=== PATIENT | male | born 1970 | race Caucasian/White ===

== ENCOUNTER 2016-07-10 19:43 | Inpatient (IN) | payer OTHER ==
[~2016-07-10] VITALS: Ht 177.8 cm; Wt 93.7 kg
--- NOTE | ~2016-07-10 | ST ---
[place], [place] EXERCISE STRESS TEST REPORT NAME: [facility]IR WAKEFIELD [id number] UNIT #: [id number] ROOM: 419 DOCTOR: DANIEL JOHN,CLAUDETTE BIRTHDATE: [birth year] DOS: 07/11/2016 REASON FOR TEST: Evaluation of atypical chest pain. PHYSICAL EXAMINATION NECK: Supple. LUNGS: Clear anteriorly. HEART: Regular rhythm. PROTOCOL: Ganga protocol. DESCRIPTION: Total stress time 7 minutes. Maximum heart rate of 155, which is 88% of target heart rate. Peak blood pressure 180/70, adequate response. Total mets 8.3 mets. REASON FOR TERMINATION: Target heart rate achieved and shortness of breath. SYMPTOMS: The patient is chest pain free, developed a mild to moderate shortness of breath and stage 2 of the Ganga protocol test. EKG: Resting EKG, sinus rhythm. Stress EKG showed 1-[address] depression in the inferior well as lead V4-V6 that was resolved by pain medicine until recovery phase. Edmond treadmill score of +7. CONCLUSION: Clinically, the patient is chest pain free, developed shortness of breath. EKG, ischemic with to 1-[address] depression in inferior leads as well as lead V4-V6. POST-STRESS COMPLICATIONS: None. CLAUDETTE SANCHEZ MD CM:STRESS:EXERCISE STRESS TEST REPORT [id number] CLAUDETTE SANCHEZ MD
--- NOTE | ~2016-07-10 | CON ---
[place], [place] REPORT OF CONSULTATION NAME: [facility]KEFIELD [id number] UNIT #: [id number] ROOM: 419 DOCTOR: DANIEL JOHNMARYStacy BIRTHDATE: [birth year] DOS: 07/11/2016 REASON FOR CONSULTATION: Chest pain. CONSULTING PHYSICIAN: Dr. Benz. CLINICAL HISTORY: The patient is a 46-year-old gentleman with history of aortic valve replacement, who came to the Emergency Room with right-sided neck pain. Apparently, the patient was watching television at home, ended up with sudden onset of burning pain on the right side of the neck as well as back of his neck. This pain radiated down his right shoulder. Pain lasted for about a few minutes. He had a similar episode of second chest pain at the time of dinner. He denies any recent injury to the neck, had no unusual physical activity except that he did carry a 40-inch TV yesterday. He also has some shortness of breath and lightheadedness with that pain and he came to the Emergency Room and was admitted to the hospital, and Cardiology was consulted for further recommendation. He had aortic valve replacement in 2013 at [facility] for a bicuspid aortic valve. He denies exertional chest pains or palpitation. No dizziness, no edema, no orthopnea, no PND, no fever, no chills, no nausea, vomiting or diarrhea. No headaches. No visual symptoms. No tingling, numbness or weakness. No hematuria or dysuria. No joint symptoms except some occasional neck pain and left shoulder pain. REVIEW OF SYSTEMS: Review of the 8 systems negative except as mentioned above, especially denies any exertional chest pains. PAST MEDICAL HISTORY: 1. History of bicuspid aortic valve, status post bioprosthetic aortic valve replacement in 2013, details unknown. 2. Dyslipidemia. 3. Acid reflux. 4. Neck pain. 5. Vitamin D deficiency. PAST SURGICAL HISTORY: History of aortic valve replacement in 2013, bioprosthetic valve. SOCIAL HISTORY: The patient quit smoking about 6 years ago and does not use illicit drugs, does not use alcohol. FAMILY HISTORY: Mother has hypertension and stroke. Father has history of CAD and stent in his 50s. ALLERGIES: THE PATIENT IS ALLERGIC TO PERCOCET. HOME MEDICATIONS: Reviewed. PHYSICAL EXAMINATION: VITAL SIGNS: Blood pressure 120/73, pulse 76, respiration is 18, weight 93.6 kilos with a BMI of 29.6. [place], [place] REPORT OF CONSULTATION NAME: VLADIMIR WAKEFIELD UNIT #: [id number] ROOM: [facility] DOCTOR: DANIEL JOHN,CLAUDETTE BIRTHDATE: [birth year] GENERAL: Alert, comfortable, in no acute distress. HEENT: Pupils are round and equal. No jaundice. Tongue was moist and pharynx was clear. NECK: Supple. No distended neck veins, no carotid bruit. CHEST: Symmetrical, nontender. LUNGS: Clear to auscultation bilaterally. HEART: Regular rhythm, no S3, grade 1/6 systolic murmur at the left sternal border. ABDOMEN: Bowel sounds normal, nontender. EXTREMITIES: Showed no edema. Distal pulses are palpable. SKIN: Warm and dry. No cyanosis, no clubbing. NEUROLOGIC: The patient is alert, oriented. No focal neurologic deficit. RECTAL: Deferred. GENITOURINARY: Deferred. MUSCULOSKELETAL: No joint tenderness or swelling. REVIEW OF DIAGNOSTIC TESTS: EKG shows sinus rhythm. No acute ischemic changes. CBC, chemistry reviewed. Cardiac enzymes were negative x . TSH 0.75. IMPRESSION: 1. Right-sided neck pain, atypical chest pain. 2. History of a bioprosthetic aortic valve replacement in 2013, details unknown. 3. Dyslipidemia. 4. Peripheral neuropathy. 5. Overweight. 6. Acid reflux. RECOMMENDATIONS: 1. He denies any chest pain or shortness of breath. As per EKG, cardiac enzymes are unremarkable. 2. Scheduled for exercise nuclear stress test to rule out ischemia. 3. Risk factor modification was discussed. 4. Try to obtain his records from . CLAUDETTE SANCHEZ MD CM:CONSTR:REPORT OF CONSULTATION 2311 07/12/16 0914 interface
--- NOTE | ~2016-07-10 | PR ---
[place], [place] PROGRESS NOTE NAME: VLADIMIR WAKEFIELD [facility] #: [id number] UNIT #: [id number] ROOM: 419 DOCTOR: CHRIS FOUNTAIN MD BIRTHDATE: [birth year] DOS: 07/12/2016 SUBJECTIVE: The patient was seen at his bedside today 07/12/2016 for followup of his neck pain and abnormal stress test. He is a 46-year-old man who has a history of a bicuspid aortic valve. He was previously seen by the [facility] and is typically followed for his cardiac issues by the [facility] system. He did undergo aortic valve replacement in 04/2012 with a 23-mm stentless porcine bioprosthesis and the ascending aorta was replaced with a 30-mm ring Dacron graft. Preoperative catheterization prior to the aortic valve surgery was reportedly normal without any coronary disease. He presented to the hospital on this occasion with neck pain and diaphoresis. The pain resolved spontaneously, but then recurred. He was brought to the hospital where his EKG showed no acute changes and cardiac biomarkers were negative; however, an exercise myocardial perfusion study was marked by EKG changes with exercise along with chest discomfort. The perfusion images showed a moderate sized area of inferior and moderate sized area of lateral wall reversible ischemia. Ejection fraction was 65%. The patient also had an echocardiogram on 07/11/2016, which showed normal left ventricular size, wall motion thickness and systolic function with an ejection fraction of 60%. Diastolic function was normal. Right ventricular size and function were normal. The aortic valve was a prosthetic which was not well visualized, but appeared to have normal function. Mean gradient across the valve was 10 mmHg. There was trace to mild tricuspid insufficiency with normal right ventricular systolic pressures. The patient feels well today; however, because of his episodes of chest pain, he is anxious to have further testing done. PHYSICAL EXAMINATION: VITAL SIGNS: On exam today, his pulse is 60 and regular, blood pressure is 143/85. He is afebrile. HEENT: Normocephalic, atraumatic. Extraocular muscles are intact. Sclerae are clear. Pupils are equal, round and reactive to light. Oral mucosa is moist. Tongue is midline. NECK: Supple. He has no jugular distention. Carotids are full. I heard no bruits. He had no neck or supraclavicular masses and no thyromegaly. LUNGS: Respirations are unlabored. His chest is clear to auscultation and percussion. He has no presacral edema or chest wall tenderness. HEART: Has a regular rhythm with a grade 3/6 late peaking systolic ejection murmur along the left sternal border. No diastolic murmurs are present. The PMI was not displaced. He had no precordial heave, lift or thrill. ABDOMEN: Soft and normally active without masses, organomegaly or bruits. EXTREMITIES: Showed no edema. Peripheral pulses were easily palpated bilaterally. IMPRESSIONS: 1. Unstable angina. 2. Abnormal stress test demonstrating inferior lateral ischemia. [place], [place] PROGRESS NOTE NAME: [facility] WAKEFIELD [facility]: [id number] UNIT #: [id number] ROOM: 419 DOCTOR: CHRIS FOUNTAIN MD BIRTHDATE: [birth year] 3. Status post aortic valve and aortic root replacement for bicuspid aortic valve and ascending aortic aneurysm. PLAN: We are planning on transferring the patient for cardiac catheterization. This probably will not be completed until 07/13/2016 because of scheduling issues at [facility]. The patient understands his risk of heart attack, stroke, , bleeding, bruising, dye reaction, irregular heartbeats, infections, etc., with catheterization and requests that we proceed. [facility] and I thank the hospitalist group for asking our advice regarding the patient's management. CHRIS FOUNTAIN MD CM:PNTRANS 0834 CHRIS FOUNTAIN MD 07/12/1611 interface
[~2016-07-10 19:43] MED LIST: AMOXICILLIN500 MG PO; ASPIRIN81 M1 PO; ATIVAN1 MG PO; AVAPRO150 MG PO; CHEWABLE ASPIRI81 MG PO; D-31000 IU PO; DILTIAZEM60 MG PO; ECOTRIN81 MG PO; GABAPENTIN100 M1 PO; HYDROCODONE BIT1 T11 PO; KEFLEX500 MG PO; LEVAQUIN750 MG PO; LEVOFLOXACIN500 MG PO; LISINOPRIL2.5 MG PO; LOPRESSOR50 MG PO; MECLIZINE HYD12.5 MG PO; NASAREL0.025 MG/1 NS; NO DAILY MEDS; PAROXETINE20 MG PO; PERCOCET 325 MG1 TA7 PO; PREDNISONE20 MG PO; PRILOSEC20 MG PO; ROXICODONE5 MG PO; SERTRALINE HCL100 MG PO; TRAZADONE HYDR100 MG PO; VICO10300 PO; VISTARIL25 MG PO; VITAMIN C1 TAB PO; VITAMIN D31000 I1 PO; WELLBUTRIN SR150 MG PO; ZESTRIL2.5 MG PO; ZOCOR20 MG PO; [UNRECOGNIZED DRUG - OTHER] OT
[2016-07-10 20:05] VITALS: BP 154/96
[2016-07-10] MEDS ORDERED: PANTOPRAZOLE SO20 MG PO (20:07)
[2016-07-10] MEDS ORDERED: LYRICA100 M1 PO (20:07)
[2016-07-10 20:55] LABS: BASO # 0.1 10*3/uL (0.0-0.1); BASO % 0.9 % (0.0-1.0); EOS # 0.3 10*3/uL (0.0-0.4); EOS % 4.2 % (1.0-4.0); HEMATOCRIT 43.9 % (42.0-52.0); HEMOGLOBIN 15.2 g/dl (14.0-18.0); LYMPH # 1.9 10*3/uL (1.3-4.4); LYMPH % 23.7 % (27.0-41.0); MEAN CELL VOLUME 89.2 fl (80.0-94.0); MEAN CORPUSCULAR HGB 30.9 pg (27.0-31.0); MEAN CORPUSCULAR HGB CONC 34.6 g/dl (33.0-37.0); MEAN PLATELET VOLUME 11.2 fl (9.6-12.3); MONO # 0.7 10*3/uL (0.1-1.0); MONO % 8.8 % (3.0-9.0); NEUT # 4.9 10*3/uL (2.3-7.9); NEUT % 62.3 % (47.0-73.0); PLATELET COUNT AUTOMATED 168 10*3/uL (130-400); RED BLOOD COUNT 4.92 10*6/uL (4.50-5.90); RED CELL DISTRI WIDTH 12.9 % (0-14.5); WHITE BLOOD COUNT 7.8 10*3/uL (4.8-10.8)
[2016-07-10 21:12] LABS: ALBUMIN 3.9 gm/dl (3.1-4.5); ALKALINE PHOSPHATASE 119 U/L (45-117); BILIRUBIN, DIRECT 0.1 mg/dL (0.0-0.2); BILIRUBIN, TOTAL 0.5 mg/dl (0.2-1.0); BUN 14 mg/dl (7-24); CARBON DIOXIDE 29 mmol/L (21-32); CHLORIDE 107 mmol/L (98-107); EST GLOM FILT AFRICAN AMERICAN > 60 ml/min; GLUCOSE 86 mg/dL (65-99); MAGNESIUM 2.2 mg/dL (1.5-2.1); POTASSIUM 4.3 mmol/L (3.5-5.1); SGOT/AST 29 IU/L (3-35); SGPT/ALT 24 U/L (12-78); SODIUM 141 mmol/L (136-145); TOTAL PROTEIN 7.4 gm/dL (6.4-8.2)
[2016-07-10 21:14] LABS: TROPONIN I < 0.015 ng/ml (<0.045)
[2016-07-10 21:53] VITALS: BP 148/76
[2016-07-10 22:55] VITALS: BP 129/80
[2016-07-11] VITALS: BP 129/80
[2016-07-11 00:30] LABS: CKMB 4.7 ng/ml (0.5-3.6); CPK 449 U/L (39-308); TROPONIN I < 0.015 ng/ml (<0.045)
[2016-07-11 06:22] LABS: BASO % 0.2 % (0.0-1.0); EOS % 0.1 % (1.0-4.0); HEMATOCRIT 46.8 % (42.0-52.0); HEMOGLOBIN 16.1 g/dl (14.0-18.0); LYMPH # 0.7 10*3/uL (1.3-4.4); LYMPH % 9.2 % (27.0-41.0); MEAN CORPUSCULAR HGB 30.6 pg (27.0-31.0); MEAN CORPUSCULAR HGB CONC 34.4 g/dl (33.0-37.0); MEAN PLATELET VOLUME 11.3 fl (9.6-12.3); MONO # 0.1 10*3/uL (0.1-1.0); MONO % 0.6 % (3.0-9.0); NEUT # 7.2 10*3/uL (2.3-7.9); NEUT % 89.5 % (47.0-73.0); PLATELET COUNT AUTOMATED 170 10*3/uL (130-400); RED BLOOD COUNT 5.26 10*6/uL (4.50-5.90); RED CELL DISTRI WIDTH 12.6 % (0-14.5)
[2016-07-11 06:34] LABS: CKMB 4.1 ng/ml (0.5-3.6); CPK 353 U/L (39-308); HEMOGLOBIN A1c 5.6 % (4.8-5.6)
[2016-07-11 06:39] LABS: TROPONIN I < 0.015 ng/ml (<0.045)
[2016-07-11 06:54] LABS: BUN 17 mg/dl (7-24); CARBON DIOXIDE 24 mmol/L (21-32); CHLORIDE 107 mmol/L (98-107); CHOLESTEROL 116 mg/dL (<200); EST GLOM FILT AFRICAN AMERICAN > 60 ml/min; GLUCOSE 140 mg/dL (65-99); POTASSIUM 4.1 mmol/L (3.5-5.1); SODIUM 138 mmol/L (136-145); TRIGLYCERIDES 57 mg/dl (<150); VLDL CHOLESTEROL 11 mg/dL (6-40)
[2016-07-11 06:59] LABS: PROTHROMBIN TIME 10.3 SECONDS (9.0-12.4)
[2016-07-11 07:02] LABS: FREE T4 0.86 ng/dl (0.76-1.46); HDL CHOLESTEROL 59 mg/dl (40-60); LDL CHOLESTEROL 46 mg/dL (9-159); THYROID STIM HORMONE (HS) 0.765 uIU/ml (0.358-4.75)
[2016-07-11 07:33] LABS: FOLIC ACID 7.51 ng/mL (>5.38)
[2016-07-11 08:00] VITALS: BP 120/74
[2016-07-11 12:00] VITALS: BP 120/73
[2016-07-11 12:40] LABS: CKMB 4.2 ng/ml (0.5-3.6); CPK 302 U/L (39-308)
[2016-07-11 12:41] LABS: TROPONIN I < 0.015 ng/ml (<0.045)
[2016-07-11 16:00] VITALS: BP 109/69
[2016-07-11 16:46] LABS: PROTHROMBIN TIME 10.7 SECONDS (9.0-12.4)
[2016-07-11 20:00] VITALS: BP 120/68
[2016-07-12] VITALS: BP 149/87
[2016-07-12 06:05] LABS: BASO % 0.2 % (0.0-1.0); EOS % 0.2 % (1.0-4.0); HEMOGLOBIN 15.5 g/dl (14.0-18.0); IG # 0.1 10*3/uL (0.0-0.1); LYMPH # 1.9 10*3/uL (1.3-4.4); LYMPH % 10.1 % (27.0-41.0); MEAN CELL VOLUME 88.9 fl (80.0-94.0); MEAN CORPUSCULAR HGB 31.3 pg (27.0-31.0); MEAN CORPUSCULAR HGB CONC 35.2 g/dl (33.0-37.0); MEAN PLATELET VOLUME 11.4 fl (9.6-12.3); MONO % 5.2 % (3.0-9.0); NEUT # 15.9 10*3/uL (2.3-7.9); NEUT % 83.8 % (47.0-73.0); PLATELET COUNT AUTOMATED 161 10*3/uL (130-400); RED BLOOD COUNT 4.95 10*6/uL (4.50-5.90); RED CELL DISTRI WIDTH 13.1 % (0-14.5)
[2016-07-12 06:30] LABS: BUN 14 mg/dl (7-24); CARBON DIOXIDE 25 mmol/L (21-32); CHLORIDE 108 mmol/L (98-107); EST GLOM FILT AFRICAN AMERICAN > 60 ml/min; GLUCOSE 110 mg/dL (65-99); POTASSIUM 4.3 mmol/L (3.5-5.1); SODIUM 141 mmol/L (136-145)
[2016-07-12 08:00] VITALS: BP 143/85
[2016-07-12 12:00] VITALS: BP 141/78
[2016-07-12 16:00] VITALS: BP 149/82
[2016-07-12 20:00] VITALS: BP 138/80
[2016-07-13] VITALS: BP 150/89
[2016-07-13 06:00] LABS: BASO # 0.1 10*3/uL (0.0-0.1); EOS # 0.2 10*3/uL (0.0-0.4); EOS % 1.8 % (1.0-4.0); HEMATOCRIT 49.7 % (42.0-52.0); HEMOGLOBIN 16.9 g/dl (14.0-18.0); IG # 0.1 10*3/uL (0.0-0.1); LYMPH # 2.9 10*3/uL (1.3-4.4); LYMPH % 27.6 % (27.0-41.0); MEAN CELL VOLUME 88.6 fl (80.0-94.0); MEAN CORPUSCULAR HGB 30.1 pg (27.0-31.0); MEAN PLATELET VOLUME 11.9 fl (9.6-12.3); MONO # 0.7 10*3/uL (0.1-1.0); NEUT # 6.4 10*3/uL (2.3-7.9); NEUT % 61.9 % (47.0-73.0); PLATELET COUNT AUTOMATED 166 10*3/uL (130-400); RED BLOOD COUNT 5.61 10*6/uL (4.50-5.90); RED CELL DISTRI WIDTH 13.2 % (0-14.5); WHITE BLOOD COUNT 10.4 10*3/uL (4.8-10.8)
== END 2016-07-13 06:29 | disposition other institution (70) | DRG 280 ==
LOC: ED 19:43 → EDHOLD 22:17 → 4E 22:17
PROVIDERS: Emergency Medicine; Internal Medicine; Nurse Practitioner Adult Health
PROC: 4A02XM4 Measurement of Cardiac Total Activity, External Approach (ICD-10-PCS; principal; 2016-07-11)
DX: I21.4 Non-ST elevation (NSTEMI) myocardial infarction (principal); N17.0 Acute kidney failure with tubular necrosis; M54.2 Cervicalgia; E78.5 Hyperlipidemia, unspecified; G62.9 Polyneuropathy, unspecified; F32.9 Major depressive disorder, single episode, unspecified; E66.3 Overweight; K21.9 Gastro-esophageal reflux disease without esophagitis; I71.2 Thoracic aortic aneurysm, without rupture; E55.9 Vitamin D deficiency, unspecified; Z95.4 Presence of other heart-valve replacement; Z82.49 Family history of ischemic heart disease and other diseases of the circulatory system; Z87.891 Personal history of nicotine dependence; Z88.6 Allergy status to analgesic agent; Z68.29 Body mass index [BMI] 29.0-29.9, adult

== ENCOUNTER 2017-02-24 14:33 | Emergency (ER) | payer OTHER ==
[~2017-02-24] VITALS: Ht 177.8 cm; Wt 94.3 kg
[~2017-02-24 14:33] MED LIST changes: +LYRICA100 M1 PO; +PANTOPRAZOLE SO20 MG PO
[2017-02-24 16:23] LABS: BASO # 0.1 10*3/uL (0.0-0.1); BASO % 0.8 % (0.0-1.0); EOS # 0.2 10*3/uL (0.0-0.4); EOS % 2.4 % (1.0-4.0); HEMOGLOBIN 16.2 g/dl (14.0-18.0); LYMPH # 2.2 10*3/uL (1.3-4.4); LYMPH % 24.1 % (27.0-41.0); MEAN CELL VOLUME 88.3 fl (80.0-94.0); MEAN CORPUSCULAR HGB 30.5 pg (27.0-31.0); MEAN CORPUSCULAR HGB CONC 34.5 g/dl (33.0-37.0); MEAN PLATELET VOLUME 11.4 fl (9.6-12.3); MONO # 0.6 10*3/uL (0.1-1.0); MONO % 6.6 % (3.0-9.0); NEUT % 65.8 % (47.0-73.0); PLATELET COUNT AUTOMATED 167 10*3/uL (130-400); RED BLOOD COUNT 5.32 10*6/uL (4.50-5.90); RED CELL DISTRI WIDTH 12.6 % (0-14.5); WHITE BLOOD COUNT 9.1 10*3/uL (4.8-10.8)
[2017-02-24 16:41] LABS: ALBUMIN 4.1 gm/dl (3.1-4.5); ALKALINE PHOSPHATASE 136 U/L (45-117); BUN 14 mg/dl (7-24); CHLORIDE 102 mmol/L (98-107); CREATININE 1.03 mg/dL (0.70-1.30); POTASSIUM 4.1 mmol/L (3.5-5.1); SGOT/AST 21 IU/L (3-35); SGPT/ALT 20 U/L (12-78); SODIUM 137 mmol/L (136-145); TOTAL PROTEIN 7.7 gm/dL (6.4-8.2)
== END 2017-02-24 18:59 | disposition home or self-care (01) ==
LOC: ED 14:33
PROVIDERS: Internal Medicine
DX: R41.82 Altered mental status, unspecified (principal); F32.9 Major depressive disorder, single episode, unspecified; K21.9 Gastro-esophageal reflux disease without esophagitis; Z79.82 Long term (current) use of aspirin; Z88.5 Allergy status to narcotic agent

== ENCOUNTER 2018-01-14 14:27 | Emergency (ER) | payer OTHER ==
[~2018-01-14] VITALS: Ht 177.8 cm; Wt 87.5 kg
[2018-01-14 17:45] LABS: BASO # 0.1 10*3/uL (0.0-0.1); BASO % 0.8 % (0.0-1.0); EOS # 0.2 10*3/uL (0.0-0.4); EOS % 1.8 % (1.0-4.0); HEMATOCRIT 46.6 % (42.0-52.0); HEMOGLOBIN 15.4 g/dl (14.0-18.0); LYMPH # 1.6 10*3/uL (1.3-4.4); LYMPH % 15.7 % (27.0-41.0); MEAN CORPUSCULAR HGB 30.7 pg (27.0-31.0); MEAN PLATELET VOLUME 11.2 fl (9.6-12.3); MONO # 0.5 10*3/uL (0.1-1.0); MONO % 5.1 % (3.0-9.0); NEUT # 7.6 10*3/uL (2.3-7.9); NEUT % 76.3 % (47.0-73.0); PLATELET COUNT AUTOMATED 159 10*3/uL (130-400); RED BLOOD COUNT 5.01 10*6/uL (4.50-5.90); RED CELL DISTRI WIDTH 12.9 % (0-14.5)
[2018-01-14 18:00] LABS: ALKALINE PHOSPHATASE 126 U/L (45-117); BUN 19 mg/dl (7-24); CHLORIDE 106 mmol/L (98-107); CREATININE 0.93 mg/dL (0.70-1.30); POTASSIUM 4.3 mmol/L (3.5-5.1); SGOT/AST 25 IU/L (3-35); SGPT/ALT 23 U/L (12-78); SODIUM 139 mmol/L (136-145); TOTAL PROTEIN 7.4 gm/dL (6.4-8.2)
[2018-01-14] MEDS ORDERED: CEPHALEXIN500 M1 PO (18:18)
[2018-01-16] MEDS ORDERED: CYMBALTA60 MG PO (12:25)
[2018-01-16] MEDS ORDERED: PROVIGIL200 MG PO (12:26)
[2018-01-16] MEDS ORDERED: ZANAFLEX CAPSULE4 MG PO (12:26)
[2018-01-18] MEDS ORDERED: NORCO 5-325 TA1 EACH PO (09:33)
[2018-01-18] MEDS ORDERED: ZOFRAN4 MG PO (09:34)
== END 2018-01-14 19:04 | disposition home or self-care (01) ==
LOC: ED 14:27
PROVIDERS: Physician Assistant
DX: S61.213A Laceration without foreign body of left middle finger without damage to nail, initial encounter (principal); R79.1 Abnormal coagulation profile; Z88.6 Allergy status to analgesic agent; Z79.899 Other long term (current) drug therapy; Z79.82 Long term (current) use of aspirin; Z87.891 Personal history of nicotine dependence; W27.8XXA Contact with other nonpowered hand tool, initial encounter; Y93.89 Activity, other specified; Y92.89 Other specified places as the place of occurrence of the external cause; Y99.8 Other external cause status

== ENCOUNTER → 2018-01-18 | Day surgery (SDC) | payer OTHER ==
[2018-01-16 12:23] VITALS: BP 149/96
[2018-01-16 14:36] LABS: BASO # 0.1 10*3/uL (0.0-0.1); BASO % 0.9 % (0.0-1.0); EOS # 0.3 10*3/uL (0.0-0.4); EOS % 4.2 % (1.0-4.0); HEMOGLOBIN 15.5 g/dl (14.0-18.0); LYMPH # 1.5 10*3/uL (1.3-4.4); LYMPH % 22.2 % (27.0-41.0); MEAN CELL VOLUME 93.9 fl (80.0-94.0); MEAN CORPUSCULAR HGB 30.3 pg (27.0-31.0); MEAN CORPUSCULAR HGB CONC 32.3 g/dl (33.0-37.0); MEAN PLATELET VOLUME 11.4 fl (9.6-12.3); MONO # 0.5 10*3/uL (0.1-1.0); MONO % 7.4 % (3.0-9.0); NEUT # 4.5 10*3/uL (2.3-7.9); PLATELET COUNT AUTOMATED 163 10*3/uL (130-400); RED BLOOD COUNT 5.11 10*6/uL (4.50-5.90); RED CELL DISTRI WIDTH 12.7 % (0-14.5); WHITE BLOOD COUNT 6.9 10*3/uL (4.8-10.8)
[2018-01-16 15:04] LABS: BUN 15 mg/dl (7-24); CHLORIDE 103 mmol/L (98-107); CREATININE 0.88 mg/dL (0.70-1.30); POTASSIUM 4.2 mmol/L (3.5-5.1); SODIUM 140 mmol/L (136-145)
[~2018-01-18] VITALS: Ht 177.8 cm; Wt 87.5 kg
[~2018-01-18] MED LIST changes: +CEPHALEXIN500 M1 PO; +CYMBALTA60 MG PO; +NORCO 5-325 TA1 EACH PO; +PROVIGIL200 MG PO; +ZANAFLEX CAPSULE4 MG PO; +ZOFRAN4 MG PO
--- NOTE | ~2018-01-18 | EKG ---
[place], [place] ELECTROCARDIOGRAM REPORT NAME: VLADIMIR WAKEFIELD UNIT #: [id number] ROOM: DOCTOR: CRISTO DRAFT REPORT BIRTHDATE: [birth year] [facility] Test Date: 2018-01-16 Test Time: 13:58:29 Pat Name: VLADIMIR WAKEFIELD Department: Room: Gender: Density Control Puncher: : 1970 Requested By: SHAREE FREEDMAN Order Number: [id number] Reading MD: Measurements Intervals Elmer Rate: 58 P: 72 CO: 174 QRS: 37 QRSD: 98 T: 76 QT: 406 QTc: 399 Interpretive Statements Sinus rhythm RSR' in V1 or V2, probably normal variant Borderline repolarization abnormality ST elev, probable normal early repol pattern No previous ECG available for comparison CM:EKGRPT:ELECTROCARDIOGRAM REPORT 1358 1059 SHAREE BREEN DRAFT REPORT SHAREE FREEDMAN DO
--- NOTE | ~2018-01-18 | O ---
[place], [place] OPERATIVE NOTE NAME: [facility] WAKEFIELD [id number] UNIT #: [id number] ROOM: DOCTOR: SHAREE OJEDA DO BIRTHDATE: [birth year] DOS: 01/18/2018 PREOPERATIVE DIAGNOSIS: Left middle finger extensor tendon laceration. POSTOPERATIVE DIAGNOSIS: Left middle finger central slip of the extensor tendon laceration with lateral band laceration. OPERATIVE PROCEDURE: Surgical repair of the left middle finger central slip and lateral band of the extensor tendon. SURGEON: Sharee Ojeda DO. CAM MILLING MACHINE OPERATOR: Kailey. ANESTHESIA: LEW Rice. INDICATIONS: The patient is a 47-year-old male who injured the left middle finger on 01/14/2018 while he was using a lathe or router making a wooden ball. Somehow his hand got caught and was cut in 2 places by the lathe. He stated that it happened quickly, was unable to determine exactly where the damage was, but went to the Emergency Room for further evaluation. He was unable to extend the PIP joint of the left middle finger. He was neurovascularly intact. PROCEDURE: The patient was brought to the operative suite after the left middle finger had been marked in the holding area. A general anesthetic with LMA intubation was performed by Anesthesia after the patient had been placed on the operative table. The left upper extremity was extended on the arm board. The tourniquet was applied to the left upper arm. The extremity was prepped and draped in the usual orthopedic fashion. The timeout was performed. A metacarpal block was performed with Marcaine 0.5% plain at the third metacarpal neck level of the left hand. The extremity was elevated and the tourniquet was inflated to 250 mmHg after the timeout had been performed. The laceration at the left middle finger was evaluated at the lateral side of the joint. This was found to be a full thickness injury. A Aubree or V shaped incision was planned over the MCP joint of the left middle finger. This was made sharply with a scalpel. The skin flap was raised full thickness and tacked to the lateral edge of the digit using 4-0 Prolene. The central slip was identified and noted to be completely lacerated. The ulnar-sided lateral band was identified and noted to be lacerated. The radial side was intact. The area was copiously irrigated with normal saline. The area was evaluated with loupe magnification and no bony damage was noted. The central slip was repaired directly with 4-0 PDS. The lateral band was repaired to the extensor tendon with 4-0 Prolene. The repair was evaluated and it was noted that with passive flexion and extension of the wrist, there was passive flexion and extension of the proximal interphalangeal joint of the middle finger. The area was copiously irrigated with normal saline and repaired in a horizontal mattress suture fashion with the 4-0 Prolene. The incision was covered with Xeroform and 4 x 4s. The tourniquet was released. The digit was covered with Conform gauze followed by an Pradeep bandage and an aluminum splint to hold the digit in full extension. [place], [place] OPERATIVE NOTE NAME: ASHUVLADIMIR UNIT #: [id number] ROOM: DOCTOR: SHAREE OJEDA DO BIRTHDATE: [birth year] The anesthetic was reversed. The patient was extubated and taken to the recovery room in satisfactory condition. Sponge and needle count correct. ESTIMATED BLOOD LOSS: 1-2 mL. SPECIMENS: None. DRAINS: None. PACKING: None. COMPLICATIONS: None. FINDINGS: Laceration of the central slip of the extensor mechanism to the left middle finger and the lateral band to the same digit. HSAREE OJEDA DO CM:OPRECORD:OPERATIVE NOTE 1223 1324 SHAREE OJEDA DO 01/24/18 1323 interface
[2018-01-18 06:30] VITALS: BP 120/81
[2018-01-18 09:05] VITALS: BP 142/78
[2018-01-18 09:20] VITALS: BP 144/82
[2018-01-18 09:35] VITALS: BP 144/79
[2018-01-18 09:51] VITALS: BP 152/80
[2018-01-18 10:05] VITALS: BP 138/81
== END | disposition home or self-care (01) ==
LOC: SDC 01-16 12:30
PROVIDERS: Orthopaedic Surgery
DX: S66.323A Laceration of extensor muscle, fascia and tendon of left middle finger at wrist and hand level, initial encounter (principal); I10 Essential (primary) hypertension; E78.00 Pure hypercholesterolemia, unspecified; G43.909 Migraine, unspecified, not intractable, without status migrainosus; F32.9 Major depressive disorder, single episode, unspecified; F41.9 Anxiety disorder, unspecified; Z98.890 Other specified postprocedural states; Z79.01 Long term (current) use of anticoagulants; Z95.2 Presence of prosthetic heart valve; Z87.891 Personal history of nicotine dependence; Z79.899 Other long term (current) drug therapy; X58.XXXA Exposure to other specified factors, initial encounter; Y93.89 Activity, other specified; Y92.89 Other specified places as the place of occurrence of the external cause; Y99.8 Other external cause status

== ENCOUNTER 2018-08-06 08:58 | Emergency (ER) | payer OTHER ==
[~2018-08-06] VITALS: Ht 177.8 cm; Wt 95.3 kg
== END 2018-08-06 10:00 | disposition home or self-care (01) ==
LOC: ED 08:58
DX: S61.213A Laceration without foreign body of left middle finger without damage to nail, initial encounter (principal); S61.215A Laceration without foreign body of left ring finger without damage to nail, initial encounter; K21.9 Gastro-esophageal reflux disease without esophagitis; I25.2 Old myocardial infarction; G62.9 Polyneuropathy, unspecified; Z87.891 Personal history of nicotine dependence; Z79.899 Other long term (current) drug therapy; Z79.82 Long term (current) use of aspirin; Z88.6 Allergy status to analgesic agent; W31.89XA Contact with other specified machinery, initial encounter; Y93.89 Activity, other specified; Y92.89 Other specified places as the place of occurrence of the external cause; Y99.8 Other external cause status

== ENCOUNTER 2019-02-25 16:03 | Inpatient (IN) | payer OTHER ==
[~2019-02-25] VITALS: Ht 175.2 cm; Wt 84.0 kg
[2019-02-25 16:03] VITALS: BP 157/79
[2019-02-25 16:25] LABS: BASO # 0.1 10*3/uL (0.0-0.1); BASO % 0.7 % (0.0-1.0); EOS # 0.2 10*3/uL (0.0-0.4); EOS % 2.8 % (1.0-4.0); HEMATOCRIT 45.3 % (42.0-52.0); HEMOGLOBIN 15.3 g/dl (14.0-18.0); LYMPH # 1.6 10*3/uL (1.3-4.4); LYMPH % 18.9 % (27.0-41.0); MEAN CELL VOLUME 92.1 fl (80.0-94.0); MEAN CORPUSCULAR HGB 31.1 pg (27.0-31.0); MEAN CORPUSCULAR HGB CONC 33.8 g/dl (33.0-37.0); MEAN PLATELET VOLUME 11.2 fl (9.6-12.3); MONO # 0.7 10*3/uL (0.1-1.0); MONO % 7.9 % (3.0-9.0); NEUT % 69.4 % (47.0-73.0); PLATELET COUNT AUTOMATED 169 10*3/uL (130-400); RED BLOOD COUNT 4.92 10*6/uL (4.50-5.90); RED CELL DISTRI WIDTH 12.4 % (0-14.5); WHITE BLOOD COUNT 8.6 10*3/uL (4.8-10.8)
[2019-02-25 16:38] VITALS: BP 149/77
[2019-02-25 16:43] LABS: ACT PARTIAL THROMBO TIME 27.6 SECONDS (20.0-32.1); ALBUMIN 3.8 gm/dl (3.1-4.5); ALKALINE PHOSPHATASE 118 U/L (45-117); BUN 20 mg/dl (7-24); CHLORIDE 107 mmol/L (98-107); INTERNATIONAL NORM RATIO 0.9 (2.0-3.5); POTASSIUM 4.1 mmol/L (3.5-5.1); SGOT/AST 19 IU/L (3-35); SGPT/ALT 21 U/L (12-78); SODIUM 140 mmol/L (136-145); TOTAL PROTEIN 7.3 gm/dL (6.4-8.2)
[2019-02-25 16:44] LABS: TROPONIN I < 0.015 ng/ml (<0.045)
[2019-02-25 17:38] VITALS: BP 152/78
[2019-02-25 18:15] VITALS: BP 140/65
[2019-02-25 20:00] VITALS: BP 138/84
[2019-02-26] VITALS: BP 127/68
[2019-02-26 06:18] LABS: BASO # 0.1 10*3/uL (0.0-0.1); BASO % 0.8 % (0.0-1.0); EOS # 0.3 10*3/uL (0.0-0.4); EOS % 4.6 % (1.0-4.0); HEMATOCRIT 49.8 % (42.0-52.0); HEMOGLOBIN 16.3 g/dl (14.0-18.0); LYMPH # 1.6 10*3/uL (1.3-4.4); LYMPH % 22.9 % (27.0-41.0); MEAN CELL VOLUME 93.1 fl (80.0-94.0); MEAN CORPUSCULAR HGB 30.5 pg (27.0-31.0); MEAN CORPUSCULAR HGB CONC 32.7 g/dl (33.0-37.0); MEAN PLATELET VOLUME 11.1 fl (9.6-12.3); MONO # 0.7 10*3/uL (0.1-1.0); MONO % 9.7 % (3.0-9.0); NEUT # 4.4 10*3/uL (2.3-7.9); NEUT % 61.6 % (47.0-73.0); PLATELET COUNT AUTOMATED 160 10*3/uL (130-400); RED BLOOD COUNT 5.35 10*6/uL (4.50-5.90); RED CELL DISTRI WIDTH 12.3 % (0-14.5); WHITE BLOOD COUNT 7.1 10*3/uL (4.8-10.8)
[2019-02-26 06:23] LABS: ALBUMIN 3.7 gm/dl (3.1-4.5); ALKALINE PHOSPHATASE 126 U/L (45-117); BUN 19 mg/dl (7-24); CHLORIDE 107 mmol/L (98-107); CREATININE 1.15 mg/dL (0.70-1.30); SGOT/AST 17 IU/L (3-35); SGPT/ALT 21 U/L (12-78); SODIUM 140 mmol/L (136-145)
[2019-02-26 06:24] LABS: POTASSIUM 5.4 mmol/L (3.5-5.1)
[2019-02-26 07:45] VITALS: BP 118/70
[2019-02-26 08:00] VITALS: BP 134/78
[2019-02-26 12:00] VITALS: BP 130/78
[2019-02-26] MEDS ORDERED: METOPROLOL SUCC25 M2 PO (13:17)
== END 2019-02-26 14:50 | disposition home or self-care (01) | DRG 303 ==
LOC: ED 16:03 → EDHOLD 17:32 → 4E 17:50
PROVIDERS: Emergency Medicine; Student in an Organized Health Care Education/Training Program; ADMIT Internal Medicine
PROC: 4A02XM4 Measurement of Cardiac Total Activity, External Approach (ICD-10-PCS; principal; 2019-02-26)
DX: I25.9 Chronic ischemic heart disease, unspecified (principal); F32.9 Major depressive disorder, single episode, unspecified; K21.9 Gastro-esophageal reflux disease without esophagitis; E78.5 Hyperlipidemia, unspecified; G58.9 Mononeuropathy, unspecified; E55.9 Vitamin D deficiency, unspecified; E87.5 Hyperkalemia; R73.9 Hyperglycemia, unspecified; R74.8 Abnormal levels of other serum enzymes; I25.2 Old myocardial infarction; Z88.5 Allergy status to narcotic agent; Z79.899 Other long term (current) drug therapy; Z79.82 Long term (current) use of aspirin; Z79.01 Long term (current) use of anticoagulants; Z95.2 Presence of prosthetic heart valve; Z87.891 Personal history of nicotine dependence; Z82.3 Family history of stroke; Z82.49 Family history of ischemic heart disease and other diseases of the circulatory system

== ENCOUNTER 2020-04-19 18:53 | Observation (INO) | payer OTHER ==
[~2020-04-19] VITALS: Ht 177.8 cm; Wt 92.6 kg
[~2020-04-19 18:53] MED LIST changes: +METOPROLOL SUCC25 M2 PO
[2020-04-19 19:00] VITALS: BP 152/87
[2020-04-19 20:00] VITALS: BP 132/72
[2020-04-19 20:04] LABS: BASO # 0.1 10*3/uL (0.0-0.1); BASO % 0.7 % (0.0-1.0); EOS # 0.4 10*3/uL (0.0-0.4); EOS % 3.1 % (1.0-4.0); HEMATOCRIT 45.4 % (42.0-52.0); LYMPH # 1.6 10*3/uL (1.3-4.4); LYMPH % 13.4 % (27.0-41.0); MEAN CELL VOLUME 92.5 fl (80.0-94.0); MEAN CORPUSCULAR HGB CONC 33.5 g/dl (33.0-37.0); MEAN PLATELET VOLUME 11.2 fl (9.6-12.3); MONO # 0.7 10*3/uL (0.1-1.0); NEUT # 8.9 10*3/uL (2.3-7.9); NEUT % 76.5 % (47.0-73.0); PLATELET COUNT AUTOMATED 170 10*3/uL (130-400); RED BLOOD COUNT 4.91 10*6/uL (4.50-5.90); RED CELL DISTRI WIDTH 12.8 % (0-14.5); WHITE BLOOD COUNT 11.7 10*3/uL (4.8-10.8)
[2020-04-19 20:21] LABS: ALBUMIN 3.5 gm/dl (3.1-4.5); ALKALINE PHOSPHATASE 98 U/L (45-117); BUN 21 mg/dl (7-24); CHLORIDE 108 mmol/L (98-107); CREATININE 1.05 mg/dL (0.70-1.30); LIPASE 90 U/L (73-393); POTASSIUM 3.9 mmol/L (3.5-5.1); SGOT/AST 18 IU/L (3-35); SGPT/ALT 23 U/L (12-78); SODIUM 138 mmol/L (136-145); TOTAL PROTEIN 6.8 gm/dL (6.4-8.2)
[2020-04-19 20:22] LABS: TROPONIN I < 0.015 ng/ml (<0.045)
[2020-04-19 22:16] VITALS: BP 139/74
[2020-04-19 23:15] VITALS: BP 131/71
[2020-04-19 23:30] VITALS: BP 132/72
[2020-04-20] MEDS ORDERED: FOSAMAX70 M1 PO (00:28)
[2020-04-20] MEDS ORDERED: MELOXICAM15 MG PO (00:28)
[2020-04-20] MEDS ORDERED: VITAMIN B-121000 MC2 PO (00:29)
[2020-04-20 05:41] LABS: ALBUMIN 3.6 gm/dl (3.1-4.5); ALKALINE PHOSPHATASE 95 U/L (45-117); BUN 20 mg/dl (7-24); CHLORIDE 109 mmol/L (98-107); CREATININE 0.88 mg/dL (0.70-1.30); POTASSIUM 3.9 mmol/L (3.5-5.1); SGOT/AST 15 IU/L (3-35); SGPT/ALT 20 U/L (12-78); SODIUM 139 mmol/L (136-145); TOTAL PROTEIN 6.9 gm/dL (6.4-8.2)
[2020-04-20 06:21] LABS: BASO # 0.1 10*3/uL (0.0-0.1); BASO % 0.9 % (0.0-1.0); EOS # 0.4 10*3/uL (0.0-0.4); EOS % 4.7 % (1.0-4.0); HEMATOCRIT 44.6 % (42.0-52.0); LYMPH # 1.8 10*3/uL (1.3-4.4); LYMPH % 24.1 % (27.0-41.0); MEAN CELL VOLUME 92.5 fl (80.0-94.0); MEAN CORPUSCULAR HGB 30.9 pg (27.0-31.0); MEAN CORPUSCULAR HGB CONC 33.4 g/dl (33.0-37.0); MEAN PLATELET VOLUME 11.3 fl (9.6-12.3); MONO # 0.6 10*3/uL (0.1-1.0); MONO % 7.9 % (3.0-9.0); NEUT # 4.7 10*3/uL (2.3-7.9); PLATELET COUNT AUTOMATED 160 10*3/uL (130-400); RED BLOOD COUNT 4.82 10*6/uL (4.50-5.90); WHITE BLOOD COUNT 7.5 10*3/uL (4.8-10.8)
[2020-04-20 08:00] VITALS: BP 134/79
[2020-04-20 12:00] VITALS: BP 131/82
[2020-04-20 16:00] VITALS: BP 130/76
[2020-04-20 20:01] VITALS: BP 127/61
[2020-04-21] VITALS: BP 125/70
[2020-04-21 06:16] LABS: BUN 20 mg/dl (7-24); CHLORIDE 107 mmol/L (98-107); CREATININE 1.03 mg/dL (0.70-1.30); SODIUM 140 mmol/L (136-145)
[2020-04-21 06:27] LABS: POTASSIUM 4.9 mmol/L (3.5-5.1)
[2020-04-21 10:56] VITALS: BP 134/82
[2020-04-21 11:42] VITALS: BP 97/43
[2020-04-21 11:57] VITALS: BP 102/48
[2020-04-21 12:12] VITALS: BP 106/63
[2020-04-21 16:00] VITALS: BP 122/67
[2020-04-21] MEDS ORDERED: PROTONIX40 MG PO (16:10)
[2020-04-21] MEDS ORDERED: Carafate1 GM PO (16:10)
== END 2020-04-21 16:30 | disposition home or self-care (01) ==
LOC: ED 18:53 → EDHOLD 21:52 → 4E 21:52
PROVIDERS: Emergency Medicine; Hospitalist; Internal Medicine; ADMIT Internal Medicine; ATTEND Internal Medicine
DX: K25.9 Gastric ulcer, unspecified as acute or chronic, without hemorrhage or perforation (principal); K21.9 Gastro-esophageal reflux disease without esophagitis; D72.829 Elevated white blood cell count, unspecified; R07.89 Other chest pain; G62.9 Polyneuropathy, unspecified; E78.5 Hyperlipidemia, unspecified; M87.059 Idiopathic aseptic necrosis of unspecified femur; Z95.2 Presence of prosthetic heart valve; Z79.899 Other long term (current) drug therapy

== ENCOUNTER 2022-03-03 12:29 | Inpatient (IN) | payer OTHER ==
[~2022-03-03] VITALS: Ht 177.8 cm; Wt 95.9 kg
[~2022-03-03 12:29] MED LIST changes: +Carafate1 GM PO; +FOSAMAX70 M1 PO; +MELOXICAM15 MG PO; +PROTONIX40 MG PO; +VITAMIN B-121000 MC2 PO
[2022-03-03 12:44] VITALS: BP 101/72
[2022-03-03 14:15] LABS: BASO # 0.1 10*3/uL (0.0-0.1); BASO % 0.6 % (0.0-1.0); EOS # 0.2 10*3/uL (0.0-0.4); EOS % 1.6 % (1.0-4.0); HEMATOCRIT 47.7 % (42.0-52.0); LYMPH % 15.4 % (27.0-41.0); MEAN CELL VOLUME 92.4 fl (80.0-94.0); MEAN CORPUSCULAR HGB 30.4 pg (27.0-31.0); MEAN CORPUSCULAR HGB CONC 32.9 g/dl (33.0-37.0); MEAN PLATELET VOLUME 10.9 fl (9.6-12.3); MONO # 1.1 10*3/uL (0.1-1.0); MONO % 8.4 % (3.0-9.0); NEUT # 9.4 10*3/uL (2.3-7.9); NEUT % 73.6 % (47.0-73.0); PLATELET COUNT AUTOMATED 163 10*3/uL (130-400); RED BLOOD COUNT 5.16 10*6/uL (4.50-5.90); RED CELL DISTRI WIDTH 12.8 % (0-14.5); WHITE BLOOD COUNT 12.7 10*3/uL (4.8-10.8)
[2022-03-03 14:28] LABS: BILIRUBIN Negative (Negative); BLOOD Negative (Negative); CLARITY Clear (Clear); COLOR Yellow (Yellow); GLUCOSE Negative (Negative); KETONE Negative (Negative); LEUKO ESTERASE Negative (Negative); NITRITE Negative (Negative); SPECIFIC GRAVITY <= 1.005 (1.001-1.030); UROBILINOGEN 0.2 E.U./dl (0.0-1.0)
[2022-03-03 14:31] LABS: ALKALINE PHOSPHATASE 87 U/L (46-116); BUN 11 mg/dl (9-23); CHLORIDE 102 mmol/L (98-107); LIPASE 33 U/L (12-53); POTASSIUM 3.9 mmol/L (3.4-5.1); SGPT/ALT 12 U/L (10-49); TOTAL PROTEIN 7.4 gm/dL (6.0-8.0)
[2022-03-03 14:35] LABS: EPITHELIAL CELLS 0-2; RBC 0-2 rbc/hpf (0-2); WBC 0-2 wbc/hpf (0-5)
[2022-03-03 16:00] VITALS: BP 133/72
[2022-03-03 18:44] VITALS: BP 146/82
[2022-03-03 19:30] VITALS: BP 147/76
[2022-03-03 20:25] VITALS: BP 133/72
[2022-03-03] MEDS ORDERED: CELECOXIB200 M1 PO (23:04)
[2022-03-04] VITALS: BP 125/74
[2022-03-04 05:21] LABS: ALKALINE PHOSPHATASE 79 U/L (46-116); BUN 10 mg/dl (9-23); CHLORIDE 103 mmol/L (98-107); POTASSIUM 3.9 mmol/L (3.4-5.1); SGPT/ALT 11 U/L (10-49); TOTAL PROTEIN 7.2 gm/dL (6.0-8.0)
[2022-03-04 06:29] LABS: HEMATOCRIT 45.7 % (42.0-52.0); MEAN CELL VOLUME 92.7 fl (80.0-94.0); MEAN CORPUSCULAR HGB 31.4 pg (27.0-31.0); MEAN CORPUSCULAR HGB CONC 33.9 g/dl (33.0-37.0); MEAN PLATELET VOLUME 11.7 fl (9.6-12.3); PLATELET COUNT AUTOMATED 163 10*3/uL (130-400); RED BLOOD COUNT 4.93 10*6/uL (4.50-5.90); RED CELL DISTRI WIDTH 12.7 % (0-14.5); WHITE BLOOD COUNT 12.9 10*3/uL (4.8-10.8)
[2022-03-04 06:34] LABS: MANUAL DIFF REFLEX YES
[2022-03-04 06:56] LABS: PLATELET SUFFICIENCY NORMAL (NORMAL); TOTAL CELLS COUNTED 100 #CELLS
[2022-03-04 08:00] VITALS: BP 144/80
[2022-03-04] MEDS ORDERED: PREDNISONE10 MG PO (11:05)
[2022-03-04] MEDS ORDERED: ASACOL HD800 M1 PO (11:05)
[2022-03-04 12:00] VITALS: BP 152/82
== END 2022-03-04 13:36 | disposition home or self-care (01) | DRG 392 ==
LOC: ED 12:29 → 4E 17:42 → EDHOLD 17:42 → 4E 19:55
PROVIDERS: Internal Medicine; ADMIT Internal Medicine; ATTEND Internal Medicine
DX: K52.9 Noninfective gastroenteritis and colitis, unspecified (principal); K92.2 Gastrointestinal hemorrhage, unspecified; F32.A Depression, unspecified; K21.9 Gastro-esophageal reflux disease without esophagitis; Z96.642 Presence of left artificial hip joint; I25.10 Atherosclerotic heart disease of native coronary artery without angina pectoris; E78.5 Hyperlipidemia, unspecified; F33.42 Major depressive disorder, recurrent, in full remission; E11.40 Type 2 diabetes mellitus with diabetic neuropathy, unspecified; E11.65 Type 2 diabetes mellitus with hyperglycemia; E83.42 Hypomagnesemia; E55.9 Vitamin D deficiency, unspecified; Z88.6 Allergy status to analgesic agent; Z95.2 Presence of prosthetic heart valve; Z82.49 Family history of ischemic heart disease and other diseases of the circulatory system; Z82.3 Family history of stroke; I25.2 Old myocardial infarction

== ENCOUNTER 2022-03-21 10:54 | Emergency (ER) | payer OTHER ==
[~2022-03-21] VITALS: Ht 177.8 cm; Wt 97.1 kg
[~2022-03-21 10:54] MED LIST changes: +ASACOL HD800 M1 PO; +CELECOXIB200 M1 PO; +PREDNISONE10 MG PO
== END 2022-03-21 12:01 | disposition home or self-care (01) ==
LOC: ED 10:54
DX: T15.91XA Foreign body on external eye, part unspecified, right eye, initial encounter (principal); Z79.899 Other long term (current) drug therapy; Z79.82 Long term (current) use of aspirin; Z98.890 Other specified postprocedural states; Z87.891 Personal history of nicotine dependence; W20.8XXA Other cause of strike by thrown, projected or falling object, initial encounter; Y93.89 Activity, other specified; Y92.89 Other specified places as the place of occurrence of the external cause; Y99.8 Other external cause status

== ENCOUNTER → 2022-04-21 | Day surgery (SDC) | payer OTHER ==
[~2022-04-21] VITALS: Ht 177.8 cm; Wt 97.5 kg
[~2022-04-21] MED LIST changes: +SIMVASTATIN5 MG PO
[2022-04-21 08:14] VITALS: BP 118/68
[2022-04-21 09:08] VITALS: BP 116/69
[2022-04-21 09:23] VITALS: BP 116/68
[2022-04-21 09:38] VITALS: BP 121/80
== END | disposition home or self-care (01) ==
LOC: SDC 04-18 13:15
PROVIDERS: ATTEND Surgery
DX: Z12.11 Encounter for screening for malignant neoplasm of colon (principal); K52.9 Noninfective gastroenteritis and colitis, unspecified; I25.10 Atherosclerotic heart disease of native coronary artery without angina pectoris; Z87.891 Personal history of nicotine dependence; I10 Essential (primary) hypertension; K21.9 Gastro-esophageal reflux disease without esophagitis; G43.909 Migraine, unspecified, not intractable, without status migrainosus

== ENCOUNTER 2023-09-25 11:01 | Emergency (ER) | payer OTHER ==
[~2023-09-25] VITALS: Ht 177.8 cm; Wt 97.5 kg
== END 2023-09-25 12:58 | disposition home or self-care (01) ==
LOC: ED 11:01
DX: S93.401A Sprain of unspecified ligament of right ankle, initial encounter (principal); I10 Essential (primary) hypertension; K21.9 Gastro-esophageal reflux disease without esophagitis; G43.909 Migraine, unspecified, not intractable, without status migrainosus; Z98.890 Other specified postprocedural states; Z87.891 Personal history of nicotine dependence; X50.1XXA Overexertion from prolonged static or awkward postures, initial encounter; Y93.89 Activity, other specified; Y92.009 Unspecified place in unspecified non-institutional (private) residence as the place of occurrence of the external cause; Y99.8 Other external cause status

== ENCOUNTER → 2024-12-19 | Outpatient (CLI) | payer OTHER ==
[~2024-12-19] MED LIST changes: +Technetium Tc 99M Medronate 1 KIT KIT IV SCH
== END | disposition home or self-care (01) ==
LOC: NM 01:20
PROVIDERS: ATTEND Physician Assistant
DX: M25.552 Pain in left hip (principal)